=== PATIENT | male | born 1980 | race Caucasian/White ===

== ENCOUNTER 2023-08-15 16:34 | Observation (INO) | payer BC, SELFPAY ==
[2023-08-15] MEDS ORDERED: Ondansetron PF 4 MG/2 ML Vial IVP PRN (20:24)
[2023-08-15] MEDS ORDERED: Calcium Carbonate 500 MG ChewTAB PO PRN (20:24)
[2023-08-15] MEDS ORDERED: Acetaminophen 325 MG TAB PO PRN (20:24)
[2023-08-15] MEDS ORDERED: Zolpidem Tartrate 5 MG TAB PO PRN (20:24)
[2023-08-15] MEDS ORDERED: Lactated Ringer's 500 ML IV SCH (20:30)
[2023-08-15] MEDS ORDERED: Ipratropium/Albuterol 3 ML NEB NEB PRN (20:33)
[2023-08-15 20:35] VITALS: BMI 21.3
[2023-08-15] MEDS ORDERED: Thiamine 100 MG TAB PO SCH (21:00)
[2023-08-15] MEDS ORDERED: Multivitamin W/ Minerals 1 TAB PO SCH (21:00)
[2023-08-15] MEDS ORDERED: Folic Acid 1 MG TAB PO SCH (21:00)
[2023-08-15 21:13] LABS: #Basophils 0.1 10x3/uL (0.0-0.2); #Eosinphils 0.2 10x3/uL (0.0-0.5); #Monocytes 1.1 10x3/uL (0.0-1.1); #Neutrophils 5.6 10x3/uL (1.5-8.4); %Basophils 0.7 % (0.0-2.0); %Eosinophils 1.9 % (0.0-6.0); %Lymphocytes 27.1 % (18.0-47.0); %Monocytes 11.1 % (0.0-10.0); %Neutrophils 58.9 % (40.0-75.0); Hematocrit 47.4 % (38.8-50.0); Hemoglobin 16.1 g/dL (13.5-17.5); Mean Corpuscular Hemoglobin 32.7 pg (27.0-33.0); Mean Corpuscular Volume 96.3 fl (81.2-95.1); Mean Platelet Volume 9.7 fl (7.4-10.4); Platelet Count 320 10x3/uL (150-450); RBC Distribution Width 11.9 % (11.5-14.5); Red Blood Cell (RBC) Count 4.92 10x6/uL (4.32-5.72); White Blood Cell (WBC) Count 9.5 10x3/uL (3.5-10.5)
[2023-08-15] MEDS ORDERED: Lactated Ringer's 1,000 ML IV SCH (21:15)
[2023-08-15 21:22] LABS: ALT (SGPT) 23 U/L (8-55); AST (SGOT) 33 U/L (5-34); Albumin 4.6 g/dL (3.5-5.0); Alkaline Phosphatase 92 U/L (40-110); Anion Gap 15 mmol/L (10-20); BUN (Urea Nitrogen) 9 mg/dL (8.9-20.6); CK (CPK) 93 U/L (30-200); Calc. Creatinine Clearance 111 mL/min (70-130); Calcium 10.1 mg/dL (7.8-10.44); Carbon Dioxide 26 mmol/L (22-29); Chloride 100 mmol/L (98-107); Estimated GFR 112; Globulin 2.9 g/dL (2.4-3.5); Glucose 98 mg/dL (70-105); Magnesium 1.8 mg/dL (1.6-2.6); Potassium 4.5 mmol/L (3.5-5.1); Protein, Total 7.5 g/dL (6.0-8.3); Sodium 136 mmol/L (136-145)
[2023-08-15 21:23] LABS: Lipase 41 U/L (8-78); Phosphorus 3.3 mg/dL (2.3-4.7)
[2023-08-15] MEDS ORDERED: Nicotine 21 MG PATCH TD SCH (22:00)
[2023-08-15] MEDS: chlordiazePOXIDE HCl 5 MG CAP PO SCH (22:35)
[2023-08-15] MEDS: levETIRAcetam 500 MG TAB PO SCH (22:35)
[2023-08-15] MEDS ORDERED: Magnesium Sulfate/D5W 1 GM/100 ML BAG IVPB SCH (22:45)
[2023-08-16] MEDS ORDERED: Budesonide 0.25 MG/2 ML NEB INH SCH (06:30)
[2023-08-16] MEDS ORDERED: Enoxaparin 40 MG (0.4 mL) SYRINGE SC SCH (09:00)
[2023-08-16] MEDS: levETIRAcetam 500 MG TAB PO SCH (09:08)
[2023-08-16] MEDS: chlordiazePOXIDE HCl 5 MG CAP PO SCH (09:08)
[2023-08-16 09:14] VITALS: BP 130/83; TEMP 97.8
== END 2023-08-16 14:09 | disposition home or self-care (01) ==
LOC: CSHTELE 18:34
PROVIDERS: ADMIT Internal Medicine; ATTEND Nurse Practitioner Acute Care
DX: F10.930 Alcohol use, unspecified with withdrawal, uncomplicated (principal); G40.909 Epilepsy, unspecified, not intractable, without status epilepticus; J44.9 Chronic obstructive pulmonary disease, unspecified; F17.210 Nicotine dependence, cigarettes, uncomplicated; Z79.899 Other long term (current) drug therapy
CPT/HCPCS: 36415; 71045; 80053; 82550; 83690; 83735; 84100; 85025; 94640; 96372; 96374; G0378; J1650; J3475; J7120; J7626